=== PATIENT | female | born 1960 | race Caucasian/White ===

== ENCOUNTER 2016-10-29 22:47 | Inpatient (IN) | payer OTHER ==
--- NOTE | ~2016-10-29 | DS ---
Unit #: [id number] #: [id number] Patient: GONZALO WEST [id number] [address] [address] [id number] I MR#: [id number] NAME: GONZALO WEST ROOM: 304 Age: 56 Sex: F Admission Date: 10/30/2016 : 1960 Discharge Date: 11/01/2016 Attending Physician: Vika Douglas M.D. Primary Care Physician: Flaco Stokes M.D. DISCHARGE SUMMARY DISCHARGE DIAGNOSES 1. Community-acquired pneumonia. 2. Questionable chronic obstructive pulmonary disease. 3. Bronchitis. 4. Obesity. CONSULT DURING THIS HOSPITAL STAY Dr. Bernal, Pulmonary. LABS, DIAGNOSTICS, AND PROCEDURES DURING THIS HOSPITAL STAY 1. Chest x-ray on admission: At least three patchy areas of density noted, one in the right lung and two in the left lung. 2. CT of the chest without contrast: Multifocal pneumonia with consolidation in the right lower lobe and in the upper lobe on the left. Additional tree-in-bud infiltrates bilaterally. Followup CT in four to six months recommended. No adenopathy. 3. Blood culture negative. DISCHARGE MEDICATIONS 1. Prozac 20 mg daily. 2. Symbicort 2 puffs inhaler b.i.d. 3. Albuterol (ProAir) 2 puffs q.4-6 p.r.n. for shortness of air. 4. Prednisone taper. 5. Zithromax 500 mg p.o. daily for 4 more days. 6. Ceftin 500 mg p.o. b.i.d. for 6 days. DISPOSITION Going home. FOLLOWUP With primary care physician in two to three days and outpatient followup with Pulmonary. HISTORY OF PRESENT HOSPITAL STAY Please refer to History and Physical which was done per my colleague, Dr. Douglas, for initial presentation on this female. ACTIVE PROBLEMS DIAGNOSED Multifocal pneumonia. Was treated with IV antibiotics. Currently stable from Pulmonary standpoint to be discharged on p.o. antibiotics. Currently afebrile. Last white count 6.8 on October 31. Again, no sign of acute respiratory distress. Stable to be discharged. Questionable COPD with bronchitis. Continue bronchodilators. Unit #: [id number] #: [id number] Patient: GONZALO WEST Prescriptions were provided per Pulmonary. Outpatient followup with Dr. Bernal. Needs four to six month followup imaging study. Again, will defer followups to primary care physician or Pulmonary. History of obesity. History of depression. Continue Prozac. Dictated by.Vale. Chidi Stone/jamia TD: 11/01/2016 22:05 JOB #: [id number] DISCHARGE SUMMARY Page 1 of 1 X Osmin Rodríguez MD X DISCHARGE SUMMARY
--- NOTE | ~2016-10-29 | CR63 ---
[facility] A Service of [facility] & [facility] RADIOLOGY TEXT RESULTS PATIENT: GONZALO WEST LOCATION: [facility] [id number] : [birth year] UNIT #: [id number] AGE: [address]: Vika Douglas MD SEX: F ORDER DR: [id number] [facility] [address] [facility]. [place], [place] [address] [id number] I MR#: [id number] Acc #: [id number] NAME: GONZALO WEST : 1960 SEX: F STUDY DATE/TIME: 10/29/2016 23:01 UNIT: [facility] ROOM: [id number] STUDY DESCRIPTION: CR Chest 2 View Attending Physician: Vika Douglas M.D. Ordering Physician: Isrrael Frederick M.D. Primary Care Physician: Flaco Stokes M.D. MEDICAL IMAGING REPORT This report is preliminary unless electronic signature is present EXAM PA and lateral chest INDICATIONS Cough since yesterday. No comparison. FINDINGS A PA and lateral view of the chest were obtained. There is a 3.5-cm area of density seen lateral to the right hilum on the PA view of the chest. On the lateral view of the chest, there appears to be about a 5-cm area of density in the superior segment of the right lower lobe. There is also some patchy density in the right base and in the left mid lung. These are laterally located. IMPRESSION There are at least three patchy areas of density noted, with one in the right lung and two in the left lung. Clinical correlation is recommended but they certainly could represent pneumonia. They do not have typical shapes of pulmonary infarcts, although the two left ones are somewhat peripheral. Clinical correlation with any evidence of pulmonary embolus is recommended. Dictated by... Morgan Alvarez M.D. THIS IS AN ELECTRONICALLY VERIFIED REPORT Morgan Alvarez M.D. at 10/30/2016 5:54 AM FEL/psc TD: 10/30/2016 03:02 JOB #: [id number] [facility] A Service of [facility] & [facility] RADIOLOGY TEXT RESULTS PATIENT: GONZALO WEST LOCATION: [facility] [address]-92 : [birth year] UNIT #: [id number] AGE: [address]: Vika Douglas MD SEX: F ORDER DR: MEDICAL IMAGING REPORT Page 1 of 1 COPY
--- NOTE | ~2016-10-29 | CT57 ---
[facility] A Service of [facility] RADIOLOGY TEXT RESULTS PATIENT: GONZALO EWST LOCATION: [facility] 304-01 : [birth year] UNIT #: [id number] AGE: [address]: Vika Douglas MD SEX: F ORDER DR: [id number] [facility] [address]. [place], [place] [address] [id number] I MR#: [id number] Acc #: [id number] NAME: GONZALO WEST : 1960 SEX: F STUDY DATE/TIME: 10/30/2016 15:44 UNIT: A U ROOM: [facility] STUDY DESCRIPTION: CT Chest Wo Cont Attending Physician: Vika Douglas M.D. Ordering Physician: Vika Douglas M.D. Primary Care Physician: Flaco Stokes M.D. MEDICAL IMAGING REPORT This report is preliminary unless electronic signature is present EXAM Chest CT, no contrast. DATE OF EXAM 10/30/2016 INDICATIONS 56-year-old female with cough, back pain, chills for 2 days. Hypertension. No history of malignancy. Community-acquired pneumonia. TECHNIQUE Noncontrast CT chest was performed. NOTE: This CT exam was performed with one or more of the following radiation dose reduction techniques: automatic exposure control, adjustment of mA and/or kV according to patient size, and iterative reconstruction. COMPARISON Correlation is made with chest x-ray, 10/29/2016. FINDINGS CT CHEST: There is no pleural effusion. There is multifocal pneumonia. There are tree-in-bud infiltrates in both lungs. There is more confluent consolidation in the superior segment of the right lower lobe and in the left upper lobe. The nodular components to the infiltrates all measure less than a centimeter and are presumably inflammatory or infectious. Smaller areas of tree-in-bud infiltrate are present in the more superior upper lobe on the left and in the posterior medial upper lobe on the right. There is atelectasis or infiltrate in the left lung base. Imaging followup to resolution after appropriate therapy is recommended. Incidental 3 mm noncalcified subpleural nodule in the right lower lobe. This is likely also inflammatory or infectious. Included thyroid unremarkable. No pericardial effusion, axillary STS. [facility] A Service of [facility] RADIOLOGY TEXT RESULTS PATIENT: GONZALO WEST LOCATION: [facility] 304-01 : [birth year] UNIT #: [id number] AGE: [address]: Vika Douglas MD SEX: F ORDER DR: adenopathy or mediastinal adenopathy. Probable reactive mediastinal nodes. Aorta demonstrates no aneurysm. Included upper abdomen demonstrates postop changes of gastric bypass. Gallbladder surgically absent. There is no suspicious bone lesion. IMPRESSION 1. Imaging features most characteristic of multifocal pneumonia. Consolidation is most conspicuous in the right lower lobe and in the upper lobe on the left. There are additional tree-in-bud infiltrates bilaterally, also most characteristic of inflammatory or infectious process. The nodular components, all measure less than a centimeter and are presumably inflammatory or infectious. Follow up chest CT in 4-6 months is recommended for reassessment of stability or resolution after appropriate therapy. No associated effusion. 2. There is no adenopathy. No pericardial effusion. 3. Upper abdomen demonstrates postop changes of gastric bypass procedure and cholecystectomy. Dictated by... Terell Tubbs M.D. THIS IS AN ELECTRONICALLY VERIFIED REPORT Terell Tubbs M.D. at 10/30/2016 10:51 PM Tangela TD: 10/30/2016 20:45 JOB #: [id number] MEDICAL IMAGING REPORT Page 1 of 1 COPY
--- NOTE | ~2016-10-29 | HP ---
Unit #: [id number] #: [id number] Patient: GONZALO WEST [id number] [address] [place], [place] [address] [id number] I MR#: [id number] NAME: GONZALO WEST ROOM: 304 Age: 56 Sex: F Admission Date: 10/30/2016 : 1960 Attending Physician: Vika Douglas M.D. Primary Care Physician: Flaco Stokes M.D. HISTORY AND PHYSICAL CHIEF COMPLAINT Chest tightness, cough and fever. HISTORY OF PRESENTING ILLNESS This 56-year-old obese female was feeling well until Saturday morning when she started having high fever, cough and chest tightness. She had some chills so she thinks that she was getting worse on night and that is what got her. Her significant past medical history is a history of pernicious anemia, morbid obesity, status post gastric (1)* for obesity. Patient followed by Dr. Stokes. She does complain of high fever although she did not document it. She complains of chills and no complaint of nausea or vomiting. She is complaining of some wheezing. She is a never smoker. She does not complain of nausea or vomiting or constipation or diarrhea. PAST MEDICAL HISTORY 1. History of pernicious anemia. 2. Morbid obesity. PAST SURGICAL HISTORY 1. History of gastric bypass surgery a number of years ago. 2. History of uterine ablation. SOCIAL HISTORY Patient lives at home with her two grow-up children has three cats, no history of smoking. She did smoke a little bit at the age of 21 but quit. No history of alcohol abuse or drug abuse. HOME MEDICATIONS Prozac 20 mg p.o. daily. FAMILY HISTORY Patient's mother had diabetes and one of the patient's sisters who had diabetes. REVIEW OF SYMPTOMS As per history of presenting illness. PHYSICAL EXAMINATION GENERAL APPEARANCE: Patient is lying in bed, does seem to be somewhat dehydrated. VITAL SIGNS: Blood pressure is 108/68. Respiratory rate is 22. Pulse is 72. Temperature 98.4. T-max is 100.2. Oxygen saturation is 92%. HEENT: Head is normocephalic. Eye movements are normal. Unit #: [id number] #: [id number] Patient: GONZALO WEST NECK: Neck is supple. CHEST: Has decreased air entry. Crackles are heard bilaterally. CVS: S1, S2 positive, regular rhythm. ABDOMEN: Obese and soft. EXTREMITIES: No edema. Pulses are palpable. ADMINISTRATIVE SUPERVISOR: Patient is awake, alert and oriented x3. No focal neurological deficit. DIAGNOSTIC STUDIES LABORATORY WORKUP: WBC 14.7, hemoglobin 12.5, hematocrit 38.4 and platelet count of 188, lactic acid 1.6, sodium 130, potassium 3.8, chloride 95, BUN 8, creatinine 0.6, liver enzymes are stable, procalcitonin level 0.12. IMAGING: Chest x-ray PA and lateral was done which shows there are patchy areas of density, one in the right lung and two in the left lung. Could be pneumonia. ASSESSMENT Patient is being admitted to a telemetry unit with: 1. Pneumonia. 2. Hypokalemia. 3. Hyponatremia. 4. History of depression. 5. Morbid obesity with body mass index of 40. PLAN Patient is being admitted to telemetry unit. IV Rocephin and IV Zithromax have been started. Blood culture has been done. A CT scan of the chest will be ordered. Dr. Bernal will be consulted. (2)* will be started. Labs will be repeated tomorrow morning. Plan of care has been discussed with patient. She verbalized understanding. *Faxed to Dr. Douglas's office on 10/30/16 for completion. cd Dictated by Chidi Kaufman TD: 10/30/2016 15:09 JOB #: [id number] HISTORY AND PHYSICAL Page 1 of 1 X Vika Douglas MD HISTORY AND PHYSICAL
--- NOTE | ~2016-10-29 | EKG ---
PATIENT: GONZALO WEST UNIT #: [id number] Ventricular Rate: 91 BPM Atrial Rate: 91 BPM P-R Interval: 142 ms QRS Duration: 84 ms Q-T Interval: 380 ms QTC Calculation(Bezet): 467 ms P [place]: 49 degrees Calculated R [place]: 25 degrees Calculated T [place]: 43 degrees Diagnosis Line: Normal sinus rhythm Diagnosis Line: Nonspecific T wave abnormality Diagnosis Line: Prolonged QT Diagnosis Line: Abnormal ECG Diagnosis Line: No previous ECGs available Diagnosis Line: Confirmed by ROMAN KANG MD ([id number]) on 10/31/2016 Diagnosis Line: 7:03:41 PM INTERPRETING MD: PEARL SANDOVAL
--- NOTE | ~2016-10-29 | BMI ---
[facility] Nutrition Therapy DATE: 10/31/16 Patient: GONZALO WEST Physician: OSMAR Address: [address] [place] [address] Room/Bed: [address] [place] [address], Zip: [place] [address] Admit Date: 10/30/16 Date of : [birth year] Height: 5 5 Weight: 255 116 HIGH BMI NOTE: ANTHROPOMETRICS: HT: 65" WT: 116 KG BMI: 42.6 INTERVENTION: 1. REGULAR DIET RECOMMENDATIONS: 1. ADD HEART HEALHY DIET RESTRICTION IN ORDER TO PROMOTE GRADUAL WEIGHT LOSS. Respectfully, JUANJO NERI RD, LD [employer] and [employer] cc: client file
--- NOTE | ~2016-10-29 | CO ---
Unit #: [id number] #: [id number] Patient: GONZALO RIBEIRO [id number] [address] [place], [place] [address] [id number] I MR#: [id number] NAME: GONZALO RIBEIRO ROOM: 304 Age: 56 Sex: F Admission Date: 10/30/2016 : 1960 Attending Physician: Vika Russell M.D. Primary Care Physician: Flaco Julio M.D. Consultation Date: 10/30/2016 CONSULTATION REPORT JOB NOTE: CC: DR. JULIO AND DR. RUSSELL REASON FOR CONSULTATION Pneumonia and abnormal chest x-ray. HISTORY OF PRESENT ILLNESS A 56-year-old female, who denies any history of lung problems, presents with a 2- to 3-day history of shortness of breath, febrile sensation, chilling sensation, and some diffuse generalized pain with coughing. In the emergency room, she had a chest x-ray with multiple nodular densities. She had fever reported 102, although I only see 100.2. She has been treated with antibiotics. She occasionally has wheeze with this, no real sputum production, although she feels congested, no hemoptysis, and no anginal-type chest pain. PAST MEDICAL HISTORY Remarkable for depression. She denies heart disease, lung disease, diabetes, hypertension, or cancer. MEDICATIONS At home, Prozac. ALLERGIES No known medical allergies. SOCIAL HISTORY She does not smoke. Does not drink. She does not work. She does have pets at home including cats. FAMILY HISTORY COPD, diabetes, hypertension, possible heart disease. REVIEW OF SYSTEMS No chest pain, palpitations, abdominal pain, melena, hematochezia, hematuria, dysuria, focal weakness, or paresthesias. Prior to this, she felt "normal." Further review of systems negative. PHYSICAL EXAMINATION VITAL SIGNS: Reveals the patient who had a T-max recorded of 100.2, now afebrile; pulse 72; respiratory rate is 22; blood pressure 108/58, 5 foot 5 inches, weight 248. BMI is 40. HEENT: Pupils equal, round, and reactive to light. Sclerae anicteric. Head atraumatic. NECK: Supple. No supraclavicular or cervical adenopathy appreciated. Unit #: [id number] #: [id number] Patient: GONZALO RIBEIRO She has natural teeth, some of which are missing. Mucous membranes moist. CHEST: Scattered rhonchi. Rare wheeze. No definite consolidation. CARDIAC: Reveals regular rate and rhythm. No pathologic murmur, rub, or gallop. ABDOMEN: Soft and nontender. No hepatomegaly or rebound. EXTREMITIES: Reveal no clubbing, cyanosis, or edema. No calf tenderness. SKIN: Warm and dry without rash or diaphoresis. NEUROLOGIC: Grossly intact. No focal motor or sensory deficits. DIAGNOSTIC STUDIES LABORATORY RESULTS: BUN is 8, creatinine 0.6, sodium is 130, potassium is 2.8. INR normal. Cardiac enzymes normal. White blood cell count 14.7, otherwise normal. No eosinophilia. Blood cultures performed and are pending. IMAGING STUDIES: Chest x-ray, fairly circular nodular densities prominent one mid right lung zone. There are two that are peripheral on the left side. They seem to have a relatively smooth margins. CARDIOVASCULAR STUDIES: EKG is normal sinus rhythm. Nonspecific ST-T wave changes. IMPRESSION 1. History certainly is consistent with pneumonia. 2. Chest x-ray is abnormal with these nodular densities. 3. Depression. 4. Hypokalemia. PLAN Agree with antibiotics, Zithromax, and Rocephin. A CT scan has been ordered and that will be followed up. We will add nebulized bronchodilators for her wheezing. Check strep and Legionella urinary antigen in attempt to obtain sputum for Gram stain and culture. She will need to have follow up to ensure radiographic clearance. Thank you very much for allowing me to participate in the care of Ms. Ribeiro. Dictated by... David Bernal M.D. LILI/david TD: 10/31/2016 05:13 JOB #: [id number] CONSULTATION REPORT Page 1 of 1 X David Bernal MD CONSULTATION REPORT
[2016-10-30 01:26] LABS: BASOPHIL% 0.2 % (0-2.5); EOSINOPHIL% 0.1 % (0.0-7.0); HEMATOCRIT 38.4 % (35.0-45.0); HEMOGLOBIN 12.5 gm/dL (12.0-16.0); LYMPHOCYTE# 1.8 X10e3 (1.0-3.5); LYMPHOCYTE% 12.2 % (17.0-45.0); MEAN CELL VOLUME 86.3 FL (83-96); MEAN CORPUSCULAR HEMOGLOBIN 28.1 PG (28-34); MEAN CORPUSCULAR HGB CONC 32.5 g/dL (30-36); MEAN PLATELET VOLUME 9.8 FL (6.5-11.5); MONOCYTE# 0.8 X10e3 (0-1.0); MONOCYTE% 5.7 % (3.0-12.0); NEUTROPHIL% 81.8 % (40-75); PLATELET COUNT 188 X10e3 (140-420); RED BLOOD COUNT 4.44 X10e (3.90-5.30); WHITE BLOOD COUNT 14.7 X10e3 (4.0-10.5)
[2016-10-30 01:32] LABS: DIFF IND NO
[2016-10-30] MEDS ORDERED: PROZAC10 MG PO (01:33)
[2016-10-30 01:36] LABS: INR 1.1; PARTIAL THROMBOPLASTIN TIME 24.8 SECONDS (23.5-31.3); PROTHROMBIN TIME (PATIENT) 11.9 SECONDS (9.6-11.5)
[2016-10-30 01:43] LABS: CALCIUM SERUM 8.4 mg/dL (8.4-10.2)
[2016-10-30 01:49] LABS: ALBUMIN SERUM 3.5 g/dL (3.5-5.0); BILIRUBIN, DIRECT 0.2 mg/dL (0.0-0.2); BILIRUBIN,INDIRECT 0.8 mg/dL (0.0-0.9); BUN/CREATININE RATIO 13.33; CREATININE SERUM 0.6 mg/dL (0.6-1.4); GLOM FILT RATE Estimated 103.3 mL/min (>60); PROTEIN TOTAL SERUM 7.4 g/dL (6.0-8.3)
[2016-10-30 01:57] LABS: POTASSIUM 2.8 mmol/L (3.5-5.1)
[2016-10-30 02:09] LABS: POC - CKMB <1.0 ng/mL (0.0-7.9); POC - TROPONIN <0.05 ng/mL (<=0.05)
[2016-10-31 06:16] LABS: HEMATOCRIT 35.3 % (35.0-45.0); HEMOGLOBIN 11.6 gm/dL (12.0-16.0); MEAN CELL VOLUME 85.8 FL (83-96); MEAN CORPUSCULAR HEMOGLOBIN 28.1 PG (28-34); MEAN CORPUSCULAR HGB CONC 32.8 g/dL (30-36); MEAN PLATELET VOLUME 9.5 FL (6.5-11.5); RED BLOOD COUNT 4.12 X10e (3.90-5.30); RED CELL DISTRIBUTION WIDTH 14.1 % (11.0-15.5)
[2016-10-31 06:31] LABS: WHITE BLOOD COUNT 6.8 X10e3 (4.0-10.5)
[2016-10-31 07:02] LABS: CALCIUM SERUM 8.1 mg/dL (8.4-10.2); CREATININE SERUM 0.6 mg/dL (0.6-1.4); GLOM FILT RATE Estimated 103.3 mL/min (>60); POTASSIUM 3.5 mmol/L (3.5-5.1)
[2016-11-01] MEDS ORDERED: ACETAMINOPHEN650 M3 PO (19:31)
[2016-11-01] MEDS ORDERED: FLUOXETINE HCL20 M1 PO (19:32)
[2016-11-01] MEDS ORDERED: ZITHROMAX500 MG PO (19:33)
[2016-11-01] MEDS ORDERED: CECLOR500 MG PO (19:35)
[2016-11-01] MEDS ORDERED: SYMBICORT INH (19:37)
[2016-11-01] MEDS ORDERED: DELTASONE20 MG PO (19:39)
[2016-11-01] MEDS ORDERED: PROAIR HFA8.5 GM INH (19:41)
== END 2016-11-01 22:24 | disposition home or self-care (01) | DRG 190 ==
LOC: CED 22:47 → CEDOF 10-30 02:20 → C3A PCU 10-30 08:48
PROVIDERS: Emergency Medicine; Physician Assistant Medical
DX: J44.0 Chronic obstructive pulmonary disease with (acute) lower respiratory infection (principal); J18.9 Pneumonia, unspecified organism; E87.1 Hypo-osmolality and hyponatremia; Z68.41 Body mass index [BMI] 40.0-44.9, adult; D64.9 Anemia, unspecified; E66.01 Morbid (severe) obesity due to excess calories; E87.6 Hypokalemia; F32.9 Major depressive disorder, single episode, unspecified
CPT/HCPCS: 36415; 71020; 71250; 80048; 80076; 82308; 82553; 83605; 84484; 85025; 85027; 85610; 85730; 87040; 93005; 94640; 94664; 94760; 99285; J0456; J0696; J1650; J2920